=== PATIENT | male | born 1995 | race Caucasian/White ===

== ENCOUNTER 2019-07-06 16:12 | Outpatient (CLI) | payer MEDICAID | END 2019-07-06 23:59 | disposition short-term general hospital (02) | LOC: EMS 16:12 | PROVIDERS: ATTEND Surgery | DX: S09.90XA Unspecified injury of head, initial encounter (principal); R10.9 Unspecified abdominal pain; S81.011A Laceration without foreign body, right knee, initial encounter; V47.5XXA Car driver injured in collision with fixed or stationary object in traffic accident, initial encounter; Y92.414 Local residential or business street as the place of occurrence of the external cause | CPT/HCPCS: A0425; A0427; A0999 ==

== ENCOUNTER 2022-01-30 08:00 | Outpatient (CLI) | payer MEDICAID ==
--- NOTE | 2022-01-30 14:27 | XRAY Report ---
PROCEDURE: Finger(s) LT INDICATIONS: LEFT INDEX FINGER BITE TECHNIQUE: AP hand, 2 views of the second finger(s) acquired. COMPARISON: None FINDINGS: Bones: No fractures or dislocations. No suspicious bony lesions. There are no findings to suggest osteomyelitis. Soft tissues: There appears to be a soft tissue injury involving the distal aspect of the patient's l eft index finger. There appear to be some radiopaque debris present along the skin surface. Recommend clinical correlation. 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 IMPRESSION: 1. Soft tissue swelling involving the index finger distally without evidence for acute osseous abnorm ality or findings to suggest osteomyelitis. 2. There is some radiopaque material noted along the skin surface recommend clinical correlation. 3. 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 Reviewed by: Patric Callahan MD on 01/30/2022 2:25 PM PDT Approved by: Patric Callahan MD on 01/30/2022 2:25 PM PDT Station ID: [id number]
== END 2022-01-30 23:59 | disposition home or self-care (01) ==
LOC: DI.S 08:00 → MERGE 13:59 → DI.S 23:59
PROVIDERS: ATTEND Emergency Medicine
DX: S61.251A Open bite of left index finger without damage to nail, initial encounter (principal)

== ENCOUNTER 2022-03-24 01:14 | Emergency (ER) | payer MEDICAID ==
--- OUTSIDE RECORDS SUMMARY | 2022-03-24 01:24 | EXTERNAL MEDICAL SUMMARY RPT | Continuity of Care Document ---
:1995 Author Organization [facility] Address [address] [place] [address] Phone Care Team Providers Name Role Phone Unavailable Unavailable Unavailable Demarcus Morales, Hipolito Unavailable Unavailable Allergies No information. Encounters No information. Functional Status No information. Immunizations No information. Medications date description facility [id number] amoxicillin-pot clavulanate [facility] C hernandez [id number]+0000 amoxicillin-pot clavulanate [facility] C hernandez [id number]+0000 CEFTRIAXONE SODIUM [facility] C hernandez [id number]+0000 ACETAMINOPHEN [facility] C hernandez [id number]+0000 IBUPROFEN [facility] C hernandez [id number]+0000 amoxicillin-pot clavulanate [facility] C hernandez [id number]+0000 amoxicillin-pot clavulanate Walk-In [facility] Nigel ng Problems No information. Procedures date description facility [id number] Visit Code Hold Walk[facility]In [facility] Nigel ng [id number]+0000 Visit Code Hold [facility] Nigel ng [id number]+0000 XR FINGER 3 VIEW [facility] C hernandez [id number]+0000 Rocephin 1gm Inj Solr Walk[facility] Nigel ng Results/Labs No information. Social History date description facility [id number]+0000 Current every day smoker Walk[facility]In [facility] C hernandez [id number]+0000 Current every day smoker [facility] Nigel ng Vital Signs date measurement value units [id number]+0000 BP_diastolic BP_diastolic 80 mmHg [id number]+0000 BP_systolic BP_systolic 132 mmHg [id number]+0000 heart_rate heart_rate 99|| comple ovidio +0000 respiration_rate respiration_rate 15 (units unknown) [id number]+0000 BMI BMI 26.39 kg/m2 94625098646609+0000 BP_diastolic BP_diastolic 86 mmHg 14473597154827+0000 BP_systolic BP_systolic 153 mmHg [id number]+0000 heart_rate heart_rate 103 /min 25786037025741+0000 height_metric height_metric 165.1 cm [id number]+0000 height_standard height_standard 65 in [id number]+0000 respiration_rate respiration_rate 16 /min 22022985658491+0000 temperature_metric temperature_metric 36.72 C [id number]+0000 temperature_standar temperature_standa 98.[address] [id number]+0000 weight_metric weight_metric 71.67 kg 74198592019836+0000 weight_standard weight_standard 158 lb"
--- NOTE | 2022-03-24 02:56 | ED Physician Documentation ---
PD HPI HEADACHE - Stated complaint Stated Complaint: HEADACHE/BACK PX - Chief complaint Chief Complaint: Neuro - History obtained from History obtained from: Patient - History of Present Illness Timing - onset: How many days ago (3) Timing - details: Gradual onset, Constant, Waxing and waning Pain level now: 8 Worst headache ever?: No: Worst headache ever? Location: Global Quality: Throbbing, Aching Associated symptoms: No: Fever, Stiff neck, Nausea, Vomiting, Weakness, Numbness, Eye pain, Vision changes Improved by: Rest, Dark room Worsened by: Light Contributing factors: No: Anticoagulated, Possible carbon monoxide, Hypertension - Additional information Additional information: c/o three days of global headache as well as left lower back pain. Patient denies injury, fever. He has had these symptoms before (with both headache and left low back pain occurring concurrently, and was evaluated in this ED (by me) in May of this year for same. As he did on this previous visit, he again tells me he has a migraine headache but in further discussion, it sounds like he has not been diagnosed with migraines but refers to his severe headaches as migraine headaches. He does not take migraine-specific medications nor has he been prescribed them. Review of Systems Constitutional: denies: Fever, Chills, Sweats Eyes: reports: Photophobia. denies: Loss of vision, Decreased vision GI: reports: Reviewed and negative Musculoskeletal: reports: Back pain. denies: Extremity pain, Pain with weight bearing Neurologic: reports: Headache. denies: Generalized weakness, Focal weakness, Numbness, Confused, Altered mental status, Head injury, LOC PD PAST MEDICAL HISTORY - Past Medical History Past Medical History: Yes Cardiovascular: None Respiratory: Asthma Neuro: Migraines, Other Endocrine/Autoimmune: None GI: None : None HEENT: Other Psych: ADD/ADHD Musculoskeletal: Chronic back pain Derm: None Other Past Medical History: TBI - Past Surgical History Past Surgical History: Yes Ortho: Other HEENT: Myringotomy (tubes), Tonsil/Adenoidectomy - Present Medications Home Medications: Ambulatory Orders Medication Instructions Recorded Confirmed No Known Home Medications 10/10/21 03/24/22 - Allergies Allergies/Adverse Reactions: Allergies Allergy/AdvReac Type Severity Reaction Status Date / Time No Known Drug Allergies Allergy Verified 03/24/22 01:22 - Social History Does the pt smoke?: Yes Smoking Status: Current every day smoker Does the pt drink ETOH?: No Does the pt have substance abuse?: No - Immunizations Immunizations are current?: Yes Immunizations: TDAP >10years/unknown - POLST Patient has POLST: No PD ED PE NORMAL - Vitals Vital signs reviewed: Yes - General General: Alert and oriented X 3, Well developed/nourished, Other (appears uncomfortable; lights off in patient's section of fast track for patient comfort due to photophobia) - HEENT HEENT: PERRL, EOMI, Moist mucous membranes - Neck Neck: Supple, no meningeal sign - Cardiac Cardiac: RRR, No murmur - Respiratory Respiratory: No respiratory distress, Clear bilaterally - Abdomen Abdomen: Soft, Non tender - Neuro Neuro: Alert and oriented X 3, pattern cutter 2-12 intact, No motor deficit, No sensory deficit, Normal speech Eye Opening: Spontaneous Motor: Obeys Commands Verbal: Oriented GCS Score: 15 Results - Vitals Vitals: Oxygen O2 Source Room air PD MEDICAL DECISION MAKING - ED course Complexity details: reviewed old records, re-evaluated patient, considered differential, d/w patient ED course: In reviewing ED visit May 2021 when I saw this patient for same symptoms, he had good symptom relief with IM toradol and thus this is given tonight (60mg IM toradol). On reevaluation, he is in NAD and reports feeling much better and is comfortable with d/c home. While his headaches could be migraine headaches, this would not explain his concomitant back pain. Possibly has low back problems that are exacerbated when he is having ongoing discomfort such as with his headaches. Given that a single dose of toradol has worked both on previous ED visit and again tonight, consideration of prescribing migraine-specific medication can be undertaken by his primary care provider. No tests performed tonight; he had unremarkable CTH when evaluated here in May and he says tonight's symptoms are no different than on that visit Departure - Departure Disposition: 01 Home, Self Care Clinical Impression: Headache, Low back pain Condition: Good Instructions: ED Cephalgia Unspecified, ED Neck Back Pain General Discharge Date/Time: 03/24/22 04:25
[2022-03-24] MEDS ORDERED: KETOROLAC 60 MG/2 ML VIAL IM STA (03:31)
[2022-03-24 04:24] VITALS: BP 139/62
== END 2022-03-24 04:25 | disposition home or self-care (01) ==
LOC: ED 01:14
DX: R51.9 Headache, unspecified (principal); M54.50 Low back pain, unspecified; F17.200 Nicotine dependence, unspecified, uncomplicated
CPT/HCPCS: 96372; 99282; 99283

== ENCOUNTER 2023-07-22 08:00 | Outpatient (CLI) | payer MEDICAID ==
--- NOTE | 2023-07-22 21:36 | XRAY Report ---
PROCEDURE: Ankle 3+V LT INDICATIONS: SPRAIN OF LEFT ANKLE TECHNIQUE: 3 views of the ankle were acquired. COMPARISON: None FINDINGS: Bones: No fractures or dislocations. Ankle mortise is normally aligned. No suspicious bony lesions . Soft tissues: Unremarkable without significant soft tissue swelling. No radiopaque foreign body. IMPRESSION: Unremarkable ankle radiographs Reviewed by: Mariano Mcleod MD on 07/22/2023 8:35 PM [facility] Approved by: Mariano Mcleod MD on 07/22/2023 8:35 PM [facility] Station ID: [id number]
== END 2023-07-22 23:59 | disposition home or self-care (01) ==
LOC: DI.S 08:00
PROVIDERS: ATTEND Nurse Practitioner
DX: S93.402A Sprain of unspecified ligament of left ankle, initial encounter (principal)